=== PATIENT | male | born 1970 | race Caucasian/White ===

== ENCOUNTER 2023-03-07 19:18 | Emergency (ER) | payer SELFPAY ==
[~2023-03-07] VITALS: Ht 165.1 cm; Wt 90.0 kg
[2023-03-07 19:25] VITALS: BP 137/90; O2SAT 98
[2023-03-07] MEDS ORDERED: NAPR220C61 MT (20:04)
[2023-03-07 20:20] VITALS: PULSE 76; RESP 18; TEMP 98.2
== END 2023-03-07 20:20 | disposition home or self-care (01) ==
LOC: ER 19:18
DX: M54.2 Cervicalgia (principal); G89.11 Acute pain due to trauma; V49.49XA Driver injured in collision with other motor vehicles in traffic accident, initial encounter; Y93.89 Activity, other specified; Y92.89 Other specified places as the place of occurrence of the external cause; Y99.8 Other external cause status
CPT/HCPCS: 99281